=== PATIENT | male | born 1980 | race Caucasian/White ===

== ENCOUNTER 2018-04-30 03:11 | Emergency (ER) | payer OTHER ==
[2018-04-30 03:31] VITALS: BP 121/77; BMI 34.8
[2018-04-30] MEDS ORDERED: ACETAMINOPHEN 500 MG TABLET (FP) ONE (03:35)
[2018-04-30] MEDS ORDERED: KETOROLAC TROMETHAMINE 15 MG/ML VIAL IVPUSH ONE (04:21)
[2018-04-30] MEDS ORDERED: METOCLOPRAMIDE HCL INJECTION 10 MG/2 ML VIAL IVPUSH ONE (04:21)
[2018-04-30] MEDS ORDERED: DEXAMETHASONE SOD PHOSPHATE 10 MG/1 ML VIAL IVPUSH ONE (04:21)
[2018-04-30] MEDS ORDERED: METOCLOPRAMIDE HCL INJECTION 10 MG/2 ML VIAL ONE (04:22)
[2018-04-30] MEDS ORDERED: DEXAMETHASONE SOD PHOSPHATE 10 MG/1 ML VIAL ONE (04:22)
--- NOTE | 2018-04-30 04:22 | PDOC ---
History of Present Illness - General Chief Complaint: Cold Symptoms Stated Complaint: VIRAL SYMPTOMS Time Seen by Provider: 04/30/18 04:19 History Source: Patient Exam Limitations: No Limitations - History of Present Illness Initial Comments: 04/30/18 05:21 migraine x 24 hours last week had sinus infection, took amoxicillin developed diarrhea this week + fever Timing/Duration: 24 hours Severity: moderate Modifying Factors: improves with: medication Associated Symptoms: reports: fever/chills. denies: loss of appetite, nausea/ vomiting, rash Past History - Past Medical History Allergies/Adverse Reactions: Allergies Allergy/AdvReac Type Severity Reaction Status Date / Time No Known Allergies Allergy Unverified 06/17/12 00:56 Home Medications: Ambulatory Orders Amlodipine Besylate 04/30/18 Aspirin [Aspirin EC] 81 mg PO DAILY 04/30/18 Atorvastatin Ca 04/30/18 Duloxetine HCl 04/30/18 Ibuprofen [Motrin Ib] 400 mg PO ONCE 04/30/18 Trintellix 04/30/18 Cardiac Disorders: Yes (AORTIC ANEURYSM) COPD: No HTN: Yes Hypercholesterolemia: Yes Psychiatric Problems: Yes - Surgical History Appendectomy: Yes - Immunization History Td Vaccination: No - Suicide/Smoking/Psychosocial Hx Smoking Status: No Smoking History: Never smoked Number of Cigarettes Smoked Daily: 0 Review of Systems - Review of Systems All Other Systems: Reviewed and Negative *Physical Exam - Vital Signs Last Vital Signs Temp Pulse Resp BP Pulse Ox 103 F H 116 H 16 121/77 98 04/30/18 03:19 04/30/18 03:19 04/30/18 03:19 04/30/18 03:19 04/30/18 03:19 - Physical Exam General Appearance: Yes: Nourished, Appropriately Dressed HEENT: positive: Normal ENT Inspection. negative: Pharyngeal Erythema, Tonsillar Exudate Neck: negative: Lymphadenopathy (R), Lymphadenopathy (L) Respiratory/Chest: positive: Lungs Clear Cardiovascular: positive: Regular Rhythm Gastrointestinal/Abdominal: negative: Tender, Distended Lymphatic: negative: Adenopathy Musculoskeletal: positive: Normal Inspection Extremity: positive: Normal Capillary Refill Integumentary: positive: Normal Color. negative: Jaundice, Rash Neurologic: positive: Fully Oriented, Motor Strength 5/5. negative: Abnormal Cranial NS, Facial Droop Moderate Sedation - Procedure Monitoring Vital Signs: Procedure Monitoring Vital Signs Temperature 103 F H 04/30/18 03:19 Pulse Rate 116 H 04/30/18 03:19 Respiratory Rate 16 04/30/18 03:19 Blood Pressure 121/77 04/30/18 03:19 O2 Sat by Pulse Oximetry (%) 98 04/30/18 03:19 Medical Decision Making - Medical Decision Making 04/30/18 05:33 migraine diarrheal illness defervesced after treatment in the ED at the time of discharge, no headache, defervesced feeling better not toxic appearing *DC/Admit/Observation/Transfer Diagnosis at time of Disposition: Migraine Qualifiers: Migraine type: without aura Status migrainosus presence: without status migrainosus Intractability: not intractable Qualified Code(s): G43.009 - Migraine without aura, not intractable, without status migrainosus Diarrhea Qualifiers: Diarrhea type: unspecified type Qualified Code(s): R19.7 - Diarrhea, unspecified - Discharge Dispostion Disposition: HOME Condition at time of disposition: Stable - Referrals - Patient Instructions Printed Discharge Instructions: Diarrhea Additional Instructions: Immodium as needed for diarrhea. Motrin as needed for headache - Post Discharge Activity
[2018-04-30] MEDS ORDERED: KETOROLAC TROMETHAMINE 15 MG/ML VIAL ONE (04:23)
[2018-04-30 04:51] VITALS: PULSE 100; TEMP 99.9
== END 2018-04-30 05:22 | disposition home or self-care (01) ==
LOC: FER 03:11
PROC: 3E033GC Introduction of Other Therapeutic Substance into Peripheral Vein, Percutaneous Approach (ICD-10-PCS; principal; 2018-04-30)
PROC: 3E0333Z Introduction of Anti-inflammatory into Peripheral Vein, Percutaneous Approach (ICD-10-PCS; 2018-04-30)
DX: G43.009 Migraine without aura, not intractable, without status migrainosus (principal); R19.7 Diarrhea, unspecified
CPT/HCPCS: 99282-25; J1100